=== PATIENT | female | born 1970 | race Caucasian/White ===

== ENCOUNTER → 2020-05-08 | Outpatient (CLI) | payer BC ==
[~2020-05-08] MED LIST: ALLER-EASE180 MG PO; BENADRYL 25MG C25 MG PO; CELEBREX200 MG PO; COZAAR100 MG PO; COZAAR50 MG PO; CRESTOR5 MG PO; DICLOFENAC GEL 1% TOP; DICLOFENAC SODI75 MG PO; DITROPAN 5 MG TA5 MG PO; DOCUSATE SODIU250 MG PO; DOXYCYCLINE HY100 MG PO; DULOXETINE HCL60 MG PO; FLUCONAZOLE150 MG PO; HYDROCODONE-AC1 EACH PO; HYDROXYZINE HCL25 MG PO; IBUPROFEN600 MG PO; ISORDIL TAB 3030 MG PO; K-TAB ER10 MEQ PO; LASIX TAB 20 MG20 MG PO; LIPITOR TAB 1010 MG PO; LOSARTAN POTASS50 MG PO; MAGNESIUM250 MG PO; METFORMIN ER1000 MG PO; METOPROLOL SUCC25 MG PO; NEURONTIN800 MG PO; NORCO 5-325 TA1 EACH PO; OMEPRAZOLE20 MG PO; ONDANSETRON HCL4 MG PO; PHENERGAN 12.12.5 M1 PO; POTASSIUM CHLO20 MEQ PO; PREDNISONE 50 M50 MG PO; RIZATRIPTAN10 MG PO; TIZANIDINE HCL2 MG PO; TRULICITY0.75 MG/0. INJ; TRULICITY1.5 MG/0.5 SQ; TYLENOL 500 MG500 MG PO; ULTRAM50 MG PO; VALACYCLOVIR1000 MG PO; VITAMIN D21250 MCG PO; VITAMIN D350 MC3 PO; VOLTAREN100 GM TP; ZANAFLEX 4 MG TA4 MG PO; ZOFRAN 4 MG TAB4 MG PO
[2020-05-08 10:53] LABS: RED BLOOD COUNT 4.25 M/UL (4.00-5.10); WHITE BLOOD COUNT 8.6 K/UL (4.5-11.0)
[2020-05-08 11:15] LABS: BUN/CREATININE RATIO 30 (0-10)
== END ==
LOC: OPSV2 10:00
PROVIDERS: Obstetrics & Gynecology
DX: Z01.812 Encounter for preprocedural laboratory examination (principal); N95.0 Postmenopausal bleeding
CPT/HCPCS: 36415; 80048; 81001; 85025

== ENCOUNTER → 2020-05-14 | Day surgery (SDC) | payer BC | END | disposition home or self-care (01) | LOC: OR 07:13 | DX: N93.8 Other specified abnormal uterine and vaginal bleeding (principal); I10 Essential (primary) hypertension; E78.00 Pure hypercholesterolemia, unspecified; R73.03 Prediabetes; G47.30 Sleep apnea, unspecified; F41.0 Panic disorder [episodic paroxysmal anxiety]; Z98.84 Bariatric surgery status; Z88.1 Allergy status to other antibiotic agents; Z88.8 Allergy status to other drugs, medicaments and biological substances; Z79.899 Other long term (current) drug therapy | CPT/HCPCS: 82962; J1100; J1170; J2001; J2250; J2405; J2704; J2765; J3010; J7030; J7120 ==

== ENCOUNTER → 2020-07-13 | Outpatient (CLI) | payer BC ==
[2020-07-13 12:09] LABS: RED BLOOD COUNT 3.99 M/UL (4.00-5.10); WHITE BLOOD COUNT 8.7 K/UL (4.5-11.0)
[2020-07-13 12:29] LABS: BUN/CREATININE RATIO 29 (0-10)
== END ==
LOC: OPSV2 11:00
PROVIDERS: Obstetrics & Gynecology
DX: Z01.818 Encounter for other preprocedural examination (principal); N95.0 Postmenopausal bleeding; R00.1 Bradycardia, unspecified
CPT/HCPCS: 36415; 80048; 81001; 85025; 93005

== ENCOUNTER 2020-07-18 06:22 | Day surgery (SDC) | payer BC ==
[~2020-07-18] VITALS: Ht 162.6 cm; Wt 104.8 kg
[~2020-07-18 06:22] MED LIST changes: -BENADRYL 25MG C25 MG PO; -DITROPAN 5 MG TA5 MG PO; -DOCUSATE SODIU250 MG PO; -HYDROCODONE-AC1 EACH PO; -IBUPROFEN600 MG PO; -LOSARTAN POTASS50 MG PO; -PREDNISONE 50 M50 MG PO
[2020-07-18] MEDS ORDERED: HYDROXYZINE HCL25 MG PO (06:57)
[2020-07-18] MEDS ORDERED: DOXYCYCLINE HY100 MG PO (07:06)
[2020-07-18] MEDS ORDERED: LOSARTAN POTASS50 MG PO (07:07)
[2020-07-18] MEDS ORDERED: DITROPAN 5 MG TA5 MG PO (08:52)
[2020-07-18] MEDS ORDERED: HYDROCODONE-AC1 EACH PO (08:52)
[2020-07-18] MEDS ORDERED: DOCUSATE SODIU250 MG PO (08:52)
[2020-07-18] MEDS ORDERED: IBUPROFEN600 MG PO (08:52)
--- NOTE | 2020-07-19 10:08 | NUR ---
DC TEACHING COMPLETED PER POLICY, VSS, APPT/EMEDS REVIEWED W/PT, PT V/U. PT WHEELCHAIRED TO PRIVATE OWNED CAR PER POLICY, SPOUSE DRIVING HER HOME.
== END 2020-07-19 10:05 | disposition home or self-care (01) ==
LOC: OR 06:22 → OB 12:41 → OR 07-19 10:05
DX: N88.8 Other specified noninflammatory disorders of cervix uteri (principal); N80.0 Endometriosis of uterus; I11.0 Hypertensive heart disease with heart failure; I50.9 Heart failure, unspecified; M19.90 Unspecified osteoarthritis, unspecified site; E66.01 Morbid (severe) obesity due to excess calories; E78.5 Hyperlipidemia, unspecified; K66.0 Peritoneal adhesions (postprocedural) (postinfection); E11.9 Type 2 diabetes mellitus without complications; K44.9 Diaphragmatic hernia without obstruction or gangrene; M79.7 Fibromyalgia; K21.9 Gastro-esophageal reflux disease without esophagitis; K27.9 Peptic ulcer, site unspecified, unspecified as acute or chronic, without hemorrhage or perforation; J45.909 Unspecified asthma, uncomplicated; G47.30 Sleep apnea, unspecified; Z83.3 Family history of diabetes mellitus; Z82.49 Family history of ischemic heart disease and other diseases of the circulatory system; Z68.38 Body mass index [BMI] 38.0-38.9, adult; Z79.899 Other long term (current) drug therapy
CPT/HCPCS: 82962; C1769; J0690; J1100; J1885; J2001; J2250; J2405; J2550; J2704; J2710; J3010; J7030; J7120

== ENCOUNTER 2020-09-08 04:46 | Emergency (ER) | payer BC ==
[~2020-09-08 04:46] MED LIST changes: +DITROPAN 5 MG TA5 MG PO; +DOCUSATE SODIU250 MG PO; +HYDROCODONE-AC1 EACH PO; +IBUPROFEN600 MG PO; +LOSARTAN POTASS50 MG PO
[2020-09-08] MEDS ORDERED: PREDNISONE 50 M50 MG PO (07:35)
[2020-09-08] MEDS ORDERED: BENADRYL 25MG C25 MG PO (07:35)
== END 2020-09-08 09:10 | disposition home or self-care (01) ==
LOC: ER1 04:46
DX: R21 Rash and other nonspecific skin eruption (principal); T50.B95A Adverse effect of other viral vaccines, initial encounter; J45.909 Unspecified asthma, uncomplicated; K21.9 Gastro-esophageal reflux disease without esophagitis; I50.9 Heart failure, unspecified; Z90.710 Acquired absence of both cervix and uterus
CPT/HCPCS: 93005; 96365; 96375; 99283; J1200; J2930

== ENCOUNTER 2020-11-02 15:50 | Emergency (ER) | payer BC ==
[2020-11-02 17:04] LABS: HEMOGLOBIN 13.5 gm/dl (12.3-15.3); RED BLOOD COUNT 4.65 M/UL (4.00-5.10); WHITE BLOOD COUNT 9.1 K/UL (4.5-11.0)
[2020-11-02 17:28] LABS: BUN/CREATININE RATIO 20 (0-10)
== END 2020-11-02 18:57 | disposition home or self-care (01) ==
LOC: ER1 15:50
PROVIDERS: Physician Assistant
DX: R07.9 Chest pain, unspecified (principal); R30.0 Dysuria; T14.8XXA Other injury of unspecified body region, initial encounter; E11.9 Type 2 diabetes mellitus without complications; I50.9 Heart failure, unspecified; Z90.49 Acquired absence of other specified parts of digestive tract; Z90.710 Acquired absence of both cervix and uterus; Z88.8 Allergy status to other drugs, medicaments and biological substances; W54.0XXA Bitten by dog, initial encounter
CPT/HCPCS: 71045; 80053; 81001; 82550; 82553; 83874; 84484; 85025; 90714; 96372; 99285

== ENCOUNTER → 2020-11-02 | Outpatient (CLI) | payer BC ==
[~2020-11-02] VITALS: Ht 162.6 cm; Wt 104.3 kg
[~2020-11-02] MED LIST changes: +BENADRYL 25MG C25 MG PO; +PREDNISONE 50 M50 MG PO
== END ==
LOC: OPSV 15:03
DX: T14.8XXA Other injury of unspecified body region, initial encounter (principal); W54.0XXA Bitten by dog, initial encounter; Z23 Encounter for immunization
CPT/HCPCS: 90714; 96372

== ENCOUNTER → 2020-11-13 | Outpatient (CLI) | payer BC | LOC: KOH-I 10:09 | DX: M79.672 Pain in left foot (principal); M79.671 Pain in right foot | CPT/HCPCS: 73630 ==

== ENCOUNTER → 2020-11-20 | Outpatient (CLI) | payer BC | LOC: KOH-I 13:00 | DX: M84.375A Stress fracture, left foot, initial encounter for fracture (principal); S93.492A Sprain of other ligament of left ankle, initial encounter | CPT/HCPCS: 73721 ==

== ENCOUNTER → 2021-01-31 | Outpatient (CLI) | payer OTHER | LOC: KOH-I 15:31 | DX: M25.531 Pain in right wrist (principal); M25.561 Pain in right knee | CPT/HCPCS: 73110; 73562 ==

== ENCOUNTER → 2021-02-07 | Outpatient (CLI) | payer BC | LOC: KOH-I 13:00 | DX: M53.3 Sacrococcygeal disorders, not elsewhere classified (principal); M47.818 Spondylosis without myelopathy or radiculopathy, sacral and sacrococcygeal region; M47.816 Spondylosis without myelopathy or radiculopathy, lumbar region | CPT/HCPCS: 72192 ==

== ENCOUNTER → 2021-03-14 | Emergency (ER) | payer BC ==
[2021-03-14 21:00] LABS: HEMOGLOBIN 11.4 gm/dl (12.3-15.3); RED BLOOD COUNT 3.84 M/UL (4.00-5.10); WHITE BLOOD COUNT 7.1 K/UL (4.5-11.0)
[2021-03-14 21:26] LABS: BUN/CREATININE RATIO 20 (0-10)
== END | disposition home or self-care (01) ==
LOC: ER1 20:03
PROVIDERS: Nurse Practitioner
DX: R07.89 Other chest pain (principal); I11.0 Hypertensive heart disease with heart failure; I50.9 Heart failure, unspecified; E11.9 Type 2 diabetes mellitus without complications; E78.5 Hyperlipidemia, unspecified; J44.9 Chronic obstructive pulmonary disease, unspecified; Z90.49 Acquired absence of other specified parts of digestive tract
CPT/HCPCS: 36415; 71045; 80048; 81001; 82550; 82553; 83735; 83874; 83880; 84484; 85025; 93005; 99285